=== PATIENT | male | born 1990 | race Caucasian/White ===

== ENCOUNTER 2018-12-09 14:39 | Emergency (ER) | payer OTHER ==
[~2018-12-09] VITALS: Ht 162.6 cm; Wt 84.8 kg
[2018-12-09 14:50] VITALS: Ht 162.6 cm; Wt 84.8 kg
[2018-12-09 17:38] VITALS: BP 119/78
== END 2018-12-09 17:39 | disposition home or self-care (01) ==
LOC: ED 14:39
DX: M94.0 Chondrocostal junction syndrome [Tietze] (principal)

== ENCOUNTER 2018-12-12 07:08 | Emergency (ER) | payer OTHER ==
[~2018-12-12] VITALS: Ht 162.6 cm; Wt 79.8 kg
[2018-12-12 07:13] VITALS: Ht 162.6 cm; Wt 79.8 kg
[2018-12-12 07:46] LABS: BASOPHIL % 0.1 % (0-2); PLATELET COUNT 205 x10^3mcL (130-400); RED CELL DISTRIBUTION WIDTH 13.3 % (11.5-14.5)
[2018-12-12 07:58] LABS: CALCIUM 9.1 mg/dL (8.5-10.1); CARBON DIOXIDE 23.4 mmol/L (21-32); CHLORIDE SERUM 98 mmol/L (98-107); CREATININE SERUM 1.4 mg/dL (0.7-1.3); GFR1 > 60 mL/min; GLUCOSE SERUM 104 mg/dL (74-106); POTASSIUM SERUM 3.6 mmol/L (3.5-5.1); SODIUM SERUM 131 mmol/L (136-145)
[2018-12-12 11:30] VITALS: BP 112/69
== END 2018-12-12 12:16 | disposition home or self-care (01) ==
LOC: ED 07:08
PROVIDERS: Emergency Medicine
DX: J10.1 Influenza due to other identified influenza virus with other respiratory manifestations (principal); J98.01 Acute bronchospasm; R07.89 Other chest pain
CPT/HCPCS: 87804; J1885; J2930; J7030; J7613; J7644